=== PATIENT | female | born 1950 | race Caucasian/White ===

== ENCOUNTER 2017-06-01 15:18 | Emergency (ER) | payer BC ==
[2017-06-01 16:32] LABS: Hematocrit 37 % (35-47); Hemoglobin 12.6 g/dl (12.0-16.0); Mean Corpuscular HGB Conc 34 g/dl (31-36); Mean Corpuscular Hemoglobin 30 pg (27-31); Mean Corpuscular Volume 90 fL (80-97); Mean Platelet Volume 9 um3 (7.4-10.4); Red Blood Count 4.14 10^6/ul (4.0-5.4); Red Cell Distribution Width 13 % (10.5-15); White Blood Count 5.5 10^3/ul (3.5-10.8)
[2017-06-01 16:44] LABS: Albumin 3.8 g/dL (3.2-5.2); BUN/Creatinine Ratio 21.8 (8-20); Calcium 8.7 mg/dL (8.6-10.3); EGFR African American 84.3 (>60); EGFR Non-African American 65.6 (>60); Globulin 2.3 g/dL (2-4); Total Bilirubin 0.3 mg/dL (0.2-1.0); Total Protein 6.1 g/dL (6.4-8.9)
[2017-06-01 16:46] LABS: Troponin I 0.01 ng/mL (<0.04)
[2017-06-01 17:48] LABS: TSH (Thyroid Stimulating Horm) 1.45 mcIU/mL (0.34-5.60)
[2017-06-01 19:19] LABS: Urine Bilirubin Negative (Negative); Urine Glucose Negative (Negative); Urine Nitrite Negative (Negative)
[2017-06-01] MEDS ORDERED: Iohexol 300* (CONTRAST) 10 ML SDV IV ONE (19:22)
--- NOTE | 2017-06-01 19:53 | RAD ---
HISTORY: Fall, lateral pain and edema COMPARISONS: None VIEWS: 3, Frontal, lateral, and oblique views of the right ankle FINDINGS: BONE DENSITY: Normal. BONES: There is a nondisplaced fracture of medial malleolus with articular extension. There is a minimally displaced fracture of the distal fibula. JOINTS: There is no arthropathy. ALIGNMENT: There is no dislocation. SOFT TISSUES: There is circumferential soft tissue swelling. OTHER FINDINGS: None. IMPRESSION: BIMALLEOLAR FRACTURES. SOFT TISSUE SWELLING.
--- NOTE | 2017-06-01 20:09 | RAD ---
HISTORY: Fall, left-sided pain, neck pain, neck clicking COMPARISONS: None TECHNIQUE: Multiple contiguous axial CT scans were obtained of the cervical spine without intravenous contrast, with coronal and sagittal multiplanar reformations. FINDINGS: BRAIN: The visualized brain is unremarkable CENTRAL CANAL: Evaluation of the central canal is limited on CT technique, however there is no obvious canalicular mass or epidural hemorrhage. ALIGNMENT: The alignment is normal, without subluxation or dislocation. VERTEBRAL BODIES: The odontoid process is intact. The atlantoaxial intervals are symmetric. The vertebral bodies are normal in attenuation, without fracture. There is multilevel anterolateral marginal osteophyte formation. JOINTS: There is multilevel uncovertebral and facet osteoarthritic change. There is osteoarthritis of the atlantoaxial articulation. MUSCULATURE: Unremarkable INTERVERTEBRAL DISCS: There is diffuse loss of intervertebral disc height. AXIAL IMAGES: On axial images, there is moderate neural foraminal narrowing at C5-C6. There is no osseous central canal stenosis. SOFT TISSUES: The visualized soft tissues of the neck are unremarkable. The prevertebral fat stripe is preserved. OTHER: None. IMPRESSION: DEGENERATIVE DISC DISEASE AND OSTEOARTHRITIS. NO ACUTE OSSEOUS INJURY TO THE CERVICAL SPINE
--- NOTE | 2017-06-01 20:09 | RAD ---
HISTORY: Fall, loss of consciousness COMPARISONS: None TECHNIQUE: Multiple contiguous axial CT scans were obtained of the head without intravenous contrast. FINDINGS: HEMORRHAGE/INFARCT: There is no hemorrhage or acute infarct. MASSES/SHIFT: There is no mass or shift. EXTRA-AXIAL SPACES: There are no extra-axial fluid collections. SULCI AND VENTRICLES: The sulci and ventricles are normal in size and position for the patient's stated age. CEREBRUM: There are no focal parenchymal abnormalities. BRAINSTEM: There are no focal parenchymal abnormalities. CEREBELLUM: There are no focal parenchymal abnormalities. VESSELS: The vessels are grossly normal. PARANASAL SINUSES: The paranasal sinuses are clear. ORBITS: The orbits are unremarkable. BONES AND SOFT TISSUE: No bone or soft tissue abnormalities are noted. OTHER: None IMPRESSION: NO ACUTE INTRACRANIAL PATHOLOGY.
--- NOTE | 2017-06-01 20:09 | RAD ---
HISTORY: Facial trauma, zygomatic pain, jaw pain COMPARISONS: None TECHNIQUE: Multiple contiguous axial CT scans were obtained of the face without intravenous contrast, with coronal and sagittal multiplanar reformations. FINDINGS: BONES: There is no displaced fracture or dislocation. The orbital rim is intact. The zygomatic arch is intact. The pterygoid plates are intact. ORBITS: The globes are round. The optic nerves are symmetric. The extraocular musculature is normal. There is no post septal or intraconal inflammatory change. There is no retrobulbar hematoma. PARANASAL SINUSES: The paranasal sinuses are clear. BRAIN AND SOFT TISSUE: Unremarkable. OTHER: None. IMPRESSION: NO FACIAL FRACTURE.
--- NOTE | 2017-06-01 20:10 | RAD ---
HISTORY: Fall, left chest trauma and pain COMPARISONS: None TECHNIQUE: Multiple contiguous axial CT scans of the chest were obtained with intravenous contrast. Coronal and sagittal multiplanar reformations are also submitted for review. FINDINGS: NECK AND THYROID: The lower neck and thyroid are unremarkable. CHEST WALL: There is no lower cervical, axillary, or supraclavicular lymphadenopathy by size criteria. HEART AND PERICARDIUM: The heart is unremarkable. AORTA AND PULMONARY VASCULATURE: The aorta and pulmonary vasculature are normal. MEDIASTINUM: There is no mediastinal lymphadenopathy by size criteria. ZURDO: There is no hilar lymphadenopathy by size criteria. AIRWAY AND ESOPHAGUS: The airway is unremarkable, without endobronchial filling defect. The esophagus is grossly normal. LUNG PARENCHYMA: The lungs are clear. PLEURA: No pleural abnormalities are noted. UPPER ABDOMEN: The upper abdomen is unremarkable. BONES AND SOFT TISSUES: Mild degenerative changes are noted. There is no displaced fracture. OTHER: None. IMPRESSION: NO ACUTE CT PATHOLOGY OF THE CHEST
[2017-06-01] MEDS ORDERED: HYDROcodone/ACETAMIN 5-325 MG* 1 TAB PO ONE (20:51)
[2017-06-01] MEDS ORDERED: Ketorolac INJ* 30 MG/ML 1 ML VIAL IV PUSH ONE (20:51)
--- NOTE | 2017-06-01 21:00 | ED ---
Adult Trauma - HPI Summary HPI Summary: Pt here w/ mechanical fall earlier tonight. Had just completed a hike w/ partner and going to dinner. As she walked into restaurant, mis-stepped d/t uneven sideway in front of restaurant and twisted her ankle - went straight down forward and landed on face - LOC briefly w/ visual change, recovered at this time - hit Lt face, Lt chest - has pain along Lt face and Lt chest. Denies trouble breathing or swallowing. Rt ankle with swelling/pain (this is ankle she twisted) - denies numbness, tingling, weakness. Jaw "clicking", neck sore but admits she has baseline soreness and not sure if it's worse or same. Currently, denies COHN, visual change, N/V, photophobia, phonophobia, confusion, memory issues. H/o fracturing same ankle when she stepped into a pothole years ago. No previous head/neck injuries to report. - History of Current Complaint Chief Complaint: EDDizziness Stated Complaint: FALL Time Seen by Provider: 06/01/17 18:41 Hx Obtained From: Patient, Family/Dairy Tester - partner Pain Intensity: 2 - Allergy/Home Medications Allergies/Adverse Reactions: Allergies Allergy/AdvReac Type Severity Reaction Status Date / Time Sulfa Drugs Allergy Severe See Comment Uncoded 06/01/17 15:37 Penicillins and Family Allergy See Comment Uncoded 06/01/17 15:37 PMH/Surg Hx/FS Hx/Imm Hx Previously Healthy: Yes Endocrine/Hematology History: Denies: Hx Anticoagulant Therapy, Hx Blood Disorders, Hx Diabetes, Autoimmune Disease Cardiovascular History: Denies: Hx Hypertension History: Denies: Hx Renal Disease Musculoskeletal History: Reports: Other Musculoskeletal History - Rt ankle fx in past - Surgical History Surgery Procedure, Year, and Place: LTH REPLACEMENT,HERNIA REPAIR. Infectious Disease History: Unable to Obtain/Confirm Infectious Disease History: Denies: Traveled Outside the [place] in Last 30 Days - Social History Occupation: Employed Full-time Lives: With Family Alcohol Use: Rare Hx Substance Use: No Substance Use Type: Reports: None Hx Tobacco Use: No Smoking Status (MU): Never Smoked Tobacco Review of Systems Negative: Fatigue Negative: Photophobia, Blurred Vision, Diplopia Positive: Other - jaw sx as in HPI. Negative: Dental Pain Cardiovascular: Other - Lt chest pain as in HPI - sore to touch and pain w/ moving Lt arm Negative: Palpitations Respiratory: Negative Gastrointestinal: Negative Positive: no symptoms reported Positive: Decreased ROM, Edema - see HPI - Rt ankle Neurological: Negative Positive: Anxious All Other Systems Reviewed And Are Negative: Yes Physical Exam Triage Information Reviewed: Yes Vital Signs On Initial Exam: Initial Vitals Temp Pulse Resp BP Pulse Ox 97.9 F 62 22 167/79 98 06/01/17 15:29 06/01/17 15:29 06/01/17 15:29 06/01/17 15:29 06/01/17 15:29 Vital Signs Reviewed: Yes Appearance: Positive: Well-Appearing - anxious, No Pain Distress, Well-Nourished Skin: Positive: Warm, Dry - Rt lateral ankle w/ anette edema and ecchymosis; face and Lt UE/chest w/o skin changes Head/Face: Positive: Normal Head/Face Inspection - no gross deformity; Pt has TTP over Lt zygomatic arch - no laxity appreciated - orbit appears to be intact , Other - no battlesign, no step-off, no raccoon eyes Eyes: Positive: Normal, EOMI, ANTONIO, Conjunctiva Clear ENT: Positive: Normal ENT inspection, Hearing grossly normal, Pharynx normal, TMs normal - no hemotympanum. Negative: Nasal congestion, Trismus - no palpable clicking, laxity, edema or deformity; alignment appears to be intact, Muffled/hoarse voice Dental: Negative: Dental Fracture @ Neck: Positive: Supple, Tenderness @ - paracervical mm, spinous pp NTTP Respiratory/Lung Sounds: Positive: Clear to Auscultation, Breath Sounds Present. Negative: Rales, Rhonchi, Subcutaneous Emphysema, Stridor, Tracheal Deviation, Wheezes, Unable to speak in full sentences - speaking well w/o difficulty Cardiovascular: Positive: Normal, RRR, Pulses are Symmetrical in both Upper and Lower Extremities, S1, S2. Negative: Murmur, Rub Abdomen Description: Positive: Nontender, Soft Bowel Sounds: Positive: Present Musculoskeletal: Positive: Strength/ROM Intact - FROM knees, hips, UE's and spine w/o difficulty or restriction, Pain @ - Rt ankle TTP - MT's, toes and tibia/fibula proximal to ankle joint are NTTP Neurological: Positive: Normal, Sensory/Motor Intact, Alert, Oriented to Person Place, Time, CN Intact II-III Psychiatric: Positive: Normal - Angeline Coma Scale Coma Scale Total: 15 Procedures - Splinting Location: Rt LE Hand-Made Type: fiberglass Splint: posterior walking - + sugar tong Rt LE Pre-Proc Neuro Vasc Exam: normal Post-Proc Neuro Vasc Exam: normal Diagnostics - Vital Signs Vital Signs Temp Pulse Resp BP Pulse Ox 06/01/17 19:00 16 144/85 06/01/17 18:30 61 12 140/77 98 06/01/17 18:02 67 17 93 06/01/17 17:30 63 18 143/80 100 06/01/17 17:00 63 16 137/73 98 06/01/17 16:46 155/94 06/01/17 16:37 64 20 98 06/01/17 16:00 59 13 100 06/01/17 15:58 63 100 06/01/17 15:29 97.9 F 62 22 167/79 98 - Laboratory Lab Results: Lab Results 06/01/17 06/01/17 06/01/17 Range/Units 16:10 16:10 16:10 WBC 5.5 (3.5-10.8) 10^3/ul RBC 4.14 (4.0-5.4) 10^6/ul Hgb 12.6 (12.0-16.0) g/dl Hct 37 (35-47) % MCV 90 (80-97) fL MCH 30 (27-31) pg MCHC 34 (31-36) g/dl RDW 13 (10.5-15) % Plt Count 140 L (150-450) 10^3/ul MPV 9 (7.4-10.4) um3 Neut % (Auto) 61.6 (38-83) % Lymph % (Auto) 29.2 (25-47) % Mcmullen % (Auto) 5.7 (1-9) % Eos % (Auto) 2.9 (0-6) % Baso % (Auto) 0.6 (0-2) % Absolute Neuts (auto) 3.4 (1.5-7.7) 10^3/ul Absolute Lymphs (auto) 1.6 (1.0-4.8) 10^3/ul Absolute Monos (auto) 0.3 (0-0.8) 10^3/ul Absolute Eos (auto) 0.2 (0-0.6) 10^3/ul Absolute Basos (auto) 0 (0-0.2) 10^3/ul Absolute Nucleated RBC 0 10^3/ul Nucleated RBC % 0 Sodium 133 (133-145) mmol/L Potassium 4.0 (3.5-5.0) mmol/L Chloride 103 (101-111) mmol/L Carbon Dioxide 25 (22-32) mmol/L Anion Gap 5 (2-11) mmol/L BUN 19 (6-24) mg/dL Creatinine 0.87 (0.51-0.95) mg/dL Est GFR ( Amer) 84.3 (>60) Est GFR (Non-Af Amer) 65.6 (>60) BUN/Creatinine Ratio 21.8 H (8-20) Glucose 91 (70-100) mg/dL Lactic Acid 0.7 (0.5-2.0) mmol/L Calcium 8.7 (8.6-10.3) mg/dL Magnesium 2.0 (1.9-2.7) mg/dL Total Bilirubin 0.30 (0.2-1.0) mg/dL AST 21 (13-39) U/L ALT 14 (7-52) U/L Alkaline Phosphatase 50 (34-104) U/L Troponin I 0.01 (<0.04) ng/mL Total Protein 6.1 L (6.4-8.9) g/dL Albumin 3.8 (3.2-5.2) g/dL Globulin 2.3 (2-4) g/dL Albumin/Globulin Ratio 1.7 (1-3) TSH 1.45 (0.34-5.60) mcIU/mL Urine Color Urine Appearance Urine pH (5-9) Ur Specific [place] (1.010-1.030) Urine Protein (Negative) Urine Ketones (Negative) Urine Blood (Negative) Urine Nitrate (Negative) Urine Bilirubin (Negative) Urine Urobilinogen (Negative) Ur Leukocyte Esterase (Negative) Urine Glucose (Negative) 06/01/17 Range/Units 19:04 WBC (3.5-10.8) 10^3/ul RBC (4.0-5.4) 10^6/ul Hgb (12.0-16.0) g/dl Hct (35-47) % MCV (80-97) fL MCH (27-31) pg MCHC (31-36) g/dl RDW (10.5-15) % Plt Count (150-450) 10^3/ul MPV (7.4-10.4) um3 Neut % (Auto) (38-83) % Lymph % (Auto) (25-47) % Mcmullen % (Auto) (1-9) % Eos % (Auto) (0-6) % Baso % (Auto) (0-2) % Absolute Neuts (auto) (1.5-7.7) 10^3/ul Absolute Lymphs (auto) (1.0-4.8) 10^3/ul Absolute Monos (auto) (0-0.8) 10^3/ul Absolute Eos (auto) (0-0.6) 10^3/ul Absolute Basos (auto) (0-0.2) 10^3/ul Absolute Nucleated RBC 10^3/ul Nucleated RBC % Sodium (133-145) mmol/L Potassium (3.5-5.0) mmol/L Chloride (101-111) mmol/L Carbon Dioxide (22-32) mmol/L Anion Gap (2-11) mmol/L BUN (6-24) mg/dL Creatinine (0.51-0.95) mg/dL Est GFR ( Amer) (>60) Est GFR (Non-Af Amer) (>60) BUN/Creatinine Ratio (8-20) Glucose (70-100) mg/dL Lactic Acid (0.5-2.0) mmol/L Calcium (8.6-10.3) mg/dL Magnesium (1.9-2.7) mg/dL Total Bilirubin (0.2-1.0) mg/dL AST (13-39) U/L ALT (7-52) U/L Alkaline Phosphatase (34-104) U/L Troponin I (<0.04) ng/mL Total Protein (6.4-8.9) g/dL Albumin (3.2-5.2) g/dL Globulin (2-4) g/dL Albumin/Globulin Ratio (1-3) TSH (0.34-5.60) mcIU/mL Urine Color Yellow Urine Appearance Clear Urine pH 7.0 (5-9) Ur Specific [place] 1.012 (1.010-1.030) Urine Protein Negative (Negative) Urine Ketones Trace H (Negative) Urine Blood Negative (Negative) Urine Nitrate Negative (Negative) Urine Bilirubin Negative (Negative) Urine Urobilinogen Negative (Negative) Ur Leukocyte Esterase Negative (Negative) Urine Glucose Negative (Negative) Result Diagrams: 06/01/17 16:10 06/01/17 16:10 Lab Statement: Any lab studies that have been ordered have been reviewed, and results considered in the medical decision making process. Adult Trauma Course/Dx - Course Course Of Treatment: Pt here w/ fall onto cement sidewalk - tripped and fell forward, catching herself with her Lt side of chest and face w brief LOC. CT reports per radiology are w/o acute findings of brain, skull, neck and chest. Her Rt ankle unfortuantely has a biimalleolar fx, non-displaced. Discussed w/ Dr. Renteria who agrees to posterior leg splint along w/ sugar tong splint and non -weight bearing/crutches until see by ortho. Also dx'd w/ concussion, musle strain of Lt chest/contusion, contusion to Left face. Education about care and monitoring for danger s/sx reviewed w/ pt and partner. They plan to drive home to [facility] and will f/u w/ ortho in [place] tomorrow morning - discs provided before d/c. Also offered local ortho in case they decided to stay. They voice understanding and agree w/ plan. Will return to ED if danger s/sx present. - Diagnoses Provider Diagnoses: Fall from standing, Concussion, Cervical strain, Chest wall muscle strain, Facial contusion, Closed bimalleolar fracture of right ankle - Physician Notifications Discussed Care Of Patient With: Richie Renteria Discharge - Discharge Plan Condition: Stable Disposition: HOME Prescriptions: HYDROcodone/ACETAMIN 5-325 MG* [[place] 5-325 TAB*] 1 tab PO Q6H PRN #14 tab MDD 4 PRN Reason: Pain Ibuprofen TAB* [Motrin TAB* 600 MG] 600 mg PO Q6H PRN #20 tab PRN Reason: Pain Patient Education Materials: Concussion (ED), Ankle Fracture (ED), Splint Care (ED), Crutch Instructions (ED), Contusion in Adults (ED), Muscle Strain (ED) Referrals: Ricihe Renteria MD [Medical Doctor] - Megha Parker MD [Primary Care Provider] - Additional Instructions: Concussion: rest both physically and cognitively for 48 hours - after this time, follow-up with PCP for recheck of symptoms before returning to activities without restrictions *If you develop change in vision, headache, vomiting, syncope, return to ED Bimalleolar ankle fracture: Keep splint clean, dry and in place until cleared by orthopedics Rest, ice, elevate You may take ibuprofen with food 600mg every 6 hours for pain, swelling You may also take norco 5/325mg every 6 hours for pain - may cause drowsiness - do not operate machinery - could not send to your pharmacy however you were sent home with #4 tablets Call orthopedics tomorrow to schedule an appointment this week. Take your disc with you if you seen an wildfire prevention specialist out of area *If you develop numbness, weakness or severe pain, loosen DIANA wraps and elevate leg for 20 minutes - if symptoms persist, return to ED Contusion/Muscle strain: Ice, ibuprofen for pain Gently stretches to prevent stiffness Follow-up with PCP *If you develop shortness of breath, fever, cough, worsening of chest pain, return to ED
[2017-06-01 21:45] VITALS: BP 120/70
== END 2017-06-01 21:45 | disposition home or self-care (01) ==
LOC: ED 15:18
DX: S06.0X0A Concussion without loss of consciousness, initial encounter (principal); S82.841A Displaced bimalleolar fracture of right lower leg, initial encounter for closed fracture; S16.1XXA Strain of muscle, fascia and tendon at neck level, initial encounter; S29.011A Strain of muscle and tendon of front wall of thorax, initial encounter; W19.XXXA Unspecified fall, initial encounter; Y93.9 Activity, unspecified; Y92.9 Unspecified place or not applicable; R07.89 Other chest pain; S00.83XA Contusion of other part of head, initial encounter
CPT/HCPCS: 36415; 70450; 70486; 71260; 72125; 80053; 81003; 83605; 83735; 84443; 84484; 85025; 93005; 96374; 99284; J1885; Q9967